=== PATIENT | female | born 1975 | race Caucasian/White ===

== ENCOUNTER → 2019-07-20 | Outpatient (CLI) | payer BC ==
[~2019-07-20] MED LIST: NO HOME MEDICATIONS; PRENATAL VITAMI1 TA5 PO
== END ==
LOC: COL.CARD 10:45
DX: R56.9 Unspecified convulsions (principal)

== ENCOUNTER → 2021-03-20 | Outpatient (REF) | LOC: COL.CARD 08:56 | DX: Z01.810 Encounter for preprocedural cardiovascular examination (principal) ==